=== PATIENT | male | born 1950 ===

== ENCOUNTER 2017-06-14 10:14 | Day surgery (SDC) | payer MEDICARE ==
--- NOTE | 2017-06-14 07:37 | HP ---
DATE OF SURGERY: 06/14/2017 ADMISSION DIAGNOSIS: Screening. ANTICIPATED PROCEDURE: Colonoscopy. HISTORY OF PRESENT ILLNESS: The patient has been over 15 years requiring colonoscopy. PAST MEDICAL HISTORY: ALLERGIES: RAMIPRIL. MEDICATIONS: Metoprolol, rosuvastatin. PAST SURGICAL HISTORY: Coronary artery bypass graft, aortic aneurysm. SOCIAL HISTORY: Negative. FAMILY HISTORY: Negative. REVIEW OF SYSTEMS: Coronary artery disease. PHYSICAL EXAMINATION: VITAL SIGNS: Normal. CHEST: Clear. COR: Regular. ABDOMEN: No palpable organomegaly or mass. IMPRESSION: 15 year screening. PLAN: Colonoscopy.
[~2017-06-14 10:14] MED LIST: Sodium Chloride 0.9% 1000 ML 1,000 ML IV SCH
[2017-06-14] MEDS ORDERED: Sodium Chloride 0.9% 1000 ML 1,000 ML ONE (10:47)
[2017-06-14 13:57] VITALS: O2SAT 94
[2017-06-14] MEDS ORDERED: DEMEROL 50 MG IV ONE (14:00)
[2017-06-14] MEDS ORDERED: VERSED 5 MG/5 ML IV ONE ×2 (14:00)
[2017-06-14 14:22] VITALS: BP 106/55; PULSE 82
--- NOTE | 2017-06-15 07:36 | OP ---
SURGERY DATE/TIME: 06/14/2017 1220 PREOPERATIVE DIAGNOSIS: Screening. POSTOPERATIVE DIAGNOSES: 1) Severe diverticulosis. 2) Patient has a very redundant long colon. PROCEDURE: Colonoscopy complete to cecum. SURGEON: Stanford Ramírez M.D. ANNEALING OPERATOR: KIM Mac. ANESTHESIA: MAC. COMPLICATIONS: None. CONDITION: Stable. INDICATION: A patient requiring evaluation. DESCRIPTION OF PROCEDURE: Taken to the endoscopy. Left lateral decubitus position. After suitable sedation obtained the scope advanced. The patient had severe diverticulosis. After this was navigated he had a very tortuous redundant colon. With care and patience the hepatic flexure was able to be navigated into the base of the cecum. Appendiceal orifice was defined. Ileocecal valve, base of the cecum normal. Ascending, hepatic, transverse, splenic, descending, sigmoid. Again severe diverticulosis rectum, anus. Satisfactory examination today. Findings were discussed with the in the waiting room. PLAN: Ten year follow up unless there are symptoms or problems.
== END 2017-06-14 14:30 | disposition home or self-care (01) ==
LOC: SDC 10:14
PROVIDERS: ATTEND Surgery
PROC: 0DJD8ZZ Inspection of Lower Intestinal Tract, Via Natural or Artificial Opening Endoscopic (ICD-10-PCS; principal; 2017-06-14)
DX: Z12.11 Encounter for screening for malignant neoplasm of colon (principal); K57.90 Diverticulosis of intestine, part unspecified, without perforation or abscess without bleeding; I25.810 Atherosclerosis of coronary artery bypass graft(s) without angina pectoris; I71.4 Abdominal aortic aneurysm, without rupture
CPT/HCPCS: G0121; J2175; J2250